=== PATIENT | female | born 1990 | race Caucasian/White ===

== ENCOUNTER 2018-10-18 10:50 | Emergency (ER) | payer BC ==
[2018-10-18 11:59] LABS: Absolute Lymphocytes (CBC) 2.4 K/uL (0.7-4.9); Absolute Monocytes 0.6 K/uL (0.1-1.3); Absolute Neutrophil 9.9 K/uL (1.8-8.0); Basophils % 1.3 % (0-1.3); Eosinophils % 1.8 % (0-4.4); Hematocrit 40.3 % (36.0-45.0); Lymphocytes % 17.9 % (15.3-44.8); MPV 7.9 fL (7.6-11.3); Monocytes % 4.7 % (3.3-12.3); RBC Red Blood Cell Count 4.56 M/uL (3.86-4.86)
[2018-10-18 12:39] LABS: Urine Blood 1+ (NEG); Urine Glucose NEGATIVE (NEG); Urine Protein NEGATIVE (NEG); Urine Specific Gravity <1.005 (1.005-1.030); Urine pH 5.5 (5.0-7.0)
[2018-10-18] MEDS ORDERED: NA CHLORIDE 0.9% 1,000 ML ONE (12:41)
[2018-10-18 12:45] LABS: Urine Bacteria <20 /HPF (<20); Urine Culture Reflex Order NOT NEEDED; Urine RBC <5 /HPF (NONE SEEN)
[2018-10-18 12:48] LABS: Potassium 3.9 mmol/L (3.5-5.1); Thyroid Stimulating Hormone 1.46 uIU/mL (0.360-3.740)
--- NOTE | 2018-10-18 13:45 | ER ---
Nurse's Notes [facility] Name: Estela Smith Age: 28 yrs Sex: Female : 1990 Arrival Date: 10/18/2018 Time: 10:51 Bed 14 Private MD: Unknown, Unknown Diagnosis: Other malaise and fatigue Presentation: 10/18 10:55 Presenting complaint: Patient states: rolando been throwing up and rolando been having acid hj reflux for a about 3 weeks; denies diarrhea and constipation; denies fever and chills; able to tolerate fluids and solid foods;. Transition of care: patient was not received from another setting of care. Onset of symptoms was October 18, 2018. Risk Assessment: Do you want to hurt yourself or someone else? Patient reports no desire to harm self or others. Initial Sepsis Screen: Does the patient meet any 2 criteria? No. Patient's initial sepsis screen is negative. Does the patient have a suspected source of infection? No. Patient's initial sepsis screen is negative. Care prior to arrival: None. 10:55 Method Of Arrival: Ambulatory 10:55 Acuity: WILLIAM 3 hj Triage Assessment: 10:57 Headache History: Denies prior headaches. General: Appears in no apparent distress. hj uncomfortable, Behavior is calm, cooperative, appropriate for age. Pain: Complains of pain in abdomen Pain currently is 7 out of 10 on a pain scale. Pain began 3 weeks anow; Also complains of nausea. Neuro: Level of Consciousness is awake, alert, obeys commands, Oriented to person, place, time, situation, Appropriate for age. 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 - Social history:: Smoking status: Patient uses tobacco products, Patient/guardian denies using alcohol. - Ebola Screening: : Patient negative for fever greater than or equal to 101.5 degrees Fahrenheit, and additional compatible Ebola Virus Disease symptoms Patient denies exposure to infectious person Patient denies travel to an Ebola-affected area in the 21 days before illness onset. Screenin:57 Abuse screen: Denies threats or abuse. Denies injuries from another. Nutritional hj screening: No deficits noted. Tuberculosis screening: No symptoms or risk factors identified. Fall Risk None identified. Assessment: 11:18 General: SEE TRIAGE NOTE. bp 12:35 Reassessment: IVF INFUSING, RESULTS PENDING. NO APPARENT DISTRESS. bp 14:15 Reassessment: PT D/C HOME AMBULATORY, DX WITH MALAISE. bp Vital Signs: 10:58 BP 134 / 88; Pulse 108; Resp 18; Temp 98.8(O); Pulse Ox 98% on R/A; Weight 54.43 kg; hj Height 5 ft. 1 in. (154.94 cm); Pain 7/10; 12:34 BP 109 / 59; Pulse 92; Resp 14; Pulse Ox 97% ; bp 10:58 Body Mass Index 22.67 (54.43 kg, 154.94 cm) hj ED Course: 10:51 Patient arrived in ED. ag5 10:51 Unknown, Unknown is Private Physician. ag5 10:56 Triage completed. hj 10:58 Arm band placed on left wrist. hj 10:59 Patient has correct armband on for positive identification. Placed in gown. Bed in low hj position. Call light in reach. Side rails up X 1. 11:11 [facility] jr8 11:11 Emanuel Balbuena MD is Attending Physician. jr8 11:18 Adithya Robert, SANTI is Primary Nurse. bp 11:50 Inserted saline lock: 20 gauge in right antecubital area, using aseptic technique. bp Blood collected. 14:13 No provider procedures requiring assistance completed. IV discontinued, intact, bp bleeding controlled, No redness/swelling at site. Pressure dressing applied. Administered Medications: 12:00 Drug: NS 0.9% 1000 ml Route: IV; Rate: 1000 ml; Site: right antecubital; bp 14:15 Follow up: IV Status: Completed infusion; IV Intake: 1000ml bp Intake: 14:15 IV: 1000ml; Total: 1000ml. bp Outcome: 13:44 Discharge ordered by . jr8 14:14 Discharged to home ambulatory. bp 14:14 Condition: stable 14:14 Discharge instructions given to patient, Instructed on discharge instructions, follow up and referral plans. Demonstrated understanding of instructions, follow-up care. 14:16 Patient left the ED. bp Signatures: Alex Curtis PA PA jr8 Vargas Pimentel RN RN Adithya Ennis RN RN Leann Damon ag5
--- NOTE | 2018-10-18 13:45 | EDPHYS ---
Physician Documentation [facility] Name: Estela Smith Age: 28 yrs Sex: Female : 1990 Arrival Date: 10/18/2018 Time: 10:51 Bed 14 Private MD: Unknown, Unknown ED Physician Emanuel Balbuena HPI: 10/18 12:16 This 28 yrs old Female presents to ER via Ambulatory with complaints of jr8 Nausea, fatigue. 12:16 Patient stated that for the past three weeks has felt overly tired and fatigued. jr8 Sleeping a lot more then usual. Has had nausea on/off. Feels like a "train" has run over her . Severity of symptoms: At their worst the symptoms were mild in the emergency department the symptoms are unchanged. The patient has not experienced similar symptoms in the past. The patient has not recently seen a physician. 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 - Social history:: Smoking status: Patient uses tobacco products, Patient/guardian denies using alcohol. - Ebola Screening: : Patient negative for fever greater than or equal to 101.5 degrees Fahrenheit, and additional compatible Ebola Virus Disease symptoms Patient denies exposure to infectious person Patient denies travel to an Ebola-affected area in the 21 days before illness onset. ROS: 12:16 Eyes: Negative for injury, pain, redness, and discharge, ENT: Negative for injury, jr8 pain, and discharge, Neck: Negative for injury, pain, and swelling, Cardiovascular: Negative for chest pain, palpitations, and edema, Respiratory: Negative for shortness of breath, cough, wheezing, and pleuritic chest pain, Back: Negative for injury and pain, MS/Extremity: Negative for injury and deformity, Skin: Negative for injury, rash, and discoloration, Neuro: Negative for headache, weakness, numbness, tingling, and seizure. 12:16 Constitutional: Positive for fatigue, malaise, Negative for body aches, chills, fever, poor PO intake. 12:16 Abdomen/GI: Positive for nausea, Negative for abdominal pain, vomiting, diarrhea, constipation, abdominal cramps, abdominal distension, anorexia, dysphagia, hematemesis, black/tarry stool, rectal pain, rectal bleeding, bowel incontinence, flatulence. Exam: 12:16 Eyes: Pupils equal round and reactive to light, extra-ocular motions intact. Lids and jr8 lashes normal. Conjunctiva and sclera are non-icteric and not injected. Cornea within normal limits. Periorbital areas with no swelling, redness, or edema. ENT: Nares patent. No nasal discharge, no septal abnormalities noted. Tympanic membranes are normal and external auditory canals are clear. Oropharynx with no redness, swelling, or masses, exudates, or evidence of obstruction, uvula midline. Mucous membranes moist. Neck: Trachea midline, no thyromegaly or masses palpated, and no cervical lymphadenopathy. Supple, full range of motion without nuchal rigidity, or vertebral point tenderness. No Meningismus. Cardiovascular: Regular rate and rhythm with a normal S1 and S2. No gallops, murmurs, or rubs. Normal PMI, no JVD. No pulse deficits. Respiratory: Lungs have equal breath sounds bilaterally, clear to auscultation and percussion. No rales, rhonchi or wheezes noted. No increased work of breathing, no retractions or nasal flaring. Abdomen/GI: Soft, non-tender, with normal bowel sounds. No distension or tympany. No guarding or rebound. No evidence of tenderness throughout. Back: No spinal tenderness. No costovertebral tenderness. Full range of motion. Skin: Warm, dry with normal turgor. Normal color with no rashes, no lesions, and no evidence of cellulitis. MS/ Extremity: Pulses equal, no cyanosis. Neurovascular intact. Full, normal range of motion. Neuro: Awake and alert, GCS 15, oriented to person, place, time, and situation. Cranial nerves II-XII grossly intact. Motor strength 5/5 in all extremities. Sensory grossly intact. Cerebellar exam normal. Normal gait. Vital Signs: 10:58 BP 134 / 88; Pulse 108; Resp 18; Temp 98.8(O); Pulse Ox 98% on R/A; Weight 54.43 kg; hj Height 5 ft. 1 in. (154.94 cm); Pain 7/10; 12:34 BP 109 / 59; Pulse 92; Resp 14; Pulse Ox 97% ; bp 10:58 Body Mass Index 22.67 (54.43 kg, 154.94 cm) hj MDM: 11:34 Patient medically screened. jr8 13:43 Data reviewed: vital signs, nurses notes, lab test result(s), and as a result, I will jr8 discharge patient. Data interpreted: Pulse oximetry: on room air is 97 %. Interpretation: normal. Counseling: I had a detailed discussion with the patient and/or guardian regarding: the historical points, exam findings, and any diagnostic results supporting the discharge/admit diagnosis, lab results, the need for outpatient follow up, a family practitioner, to return to the emergency department if symptoms worsen or persist or if there are any questions or concerns that arise at home. 10/18 11:39 Order name: CBC with Diff; Complete Time: 12:07 10/18 11:39 Order name: Basic Metabolic Panel; Complete Time: 12:56 rust 10/18 11:39 Order name: TSH; Complete Time: 12:56 10/18 11:39 Order name: T4 Free; Complete Time: 12:56 10/18 12:00 Order name: Urine Culture bp 10/18 12:00 Order name: Urine Microscopic Only; Complete Time: 12:47 bp 10/18 11:39 Order name: Urine Test (obtain specimen); Complete Time: 12:00 8 10/18 11:39 Order name: Urine Dipstick-Ancillary (obtain specimen); Complete Time: 12:00 rust 10/18 11:39 Order name: IV; Complete Time: 12:00 10/18 12:05 Order name: Urine Dipstick--Ancillary (enter results); Complete Time: 12:47 eb 10/18 12:05 Order name: Test, Serum; Complete Time: 13:43 eb Administered Medications: 12:00 Drug: NS 0.9% 1000 ml Route: IV; Rate: 1000 ml; Site: right antecubital; bp 14:15 Follow up: IV Status: Completed infusion; IV Intake: 1000ml bp Disposition: 14:28 Co-signature as Attending Physician, Emanuel Balbuena MD I agree with the assessment and kdr plan of care. Disposition: 10/18/18 13:44 Discharged to Home. Impression: Other malaise and fatigue. - Condition is Stable. - Discharge Instructions: Fatigue. - Medication Reconciliation Form, Thank You Letter, Antibiotic Education, Prescription Opioid Use, Work release form form. - Follow up: Private Physician; When: 2 - 3 days; Reason: Recheck today's complaints, Continuance of care, Re-evaluation by your physician. - Problem is new. - Symptoms have improved. Signatures: Dispatcher [employer] EDMS Emanuel Balbuena MD MD [facility] Alex Curtis PA PA jr8 Vargas Pimentel RN RN hj Adithya Robert RN RN bp Corrections: (The following items were deleted from the chart) 14:16 13:44 10/18/2018 13:44 Discharged to Home. Impression: Other malaise and fatigue. bp Condition is Stable. Forms are Medication Reconciliation Form, Thank You Letter, Antibiotic Education, Prescription Opioid Use. Follow up: Private Physician; When: 2 - 3 days; Reason: Recheck today's complaints, Continuance of care, Re-evaluation by your physician. Problem is new. Symptoms have improved. jr8
== END 2018-10-18 14:16 | disposition home or self-care (01) ==
LOC: ER 10:50
DX: R53.83 Other fatigue (principal); R53.81 Other malaise; R11.0 Nausea; J45.909 Unspecified asthma, uncomplicated; Z72.0 Tobacco use
CPT/HCPCS: 36415; 80048; 81003; 81015; 84439; 84443; 84703; 85025; 87086; 87088; 96360; 96361; 99283; J7030

== ENCOUNTER 2021-02-26 14:41 | Emergency (ER) | payer BC ==
--- OUTSIDE RECORDS SUMMARY | 2021-02-26 14:45 | XMS REPORT | Continuity of Care Document ---
:1990 Author Organization [facility] t Address [address] [place] [address] [address] [place] [address] Care Team Providers Name Role Phone Unavailable Unavailable Unavailable Payers Payer Name Policy Type Policy Number Effective Date Expiration Date S ource Problems This patient has no known problems. Allergies, Adverse Reactions, Alerts Allergy Allergy Status Severity Reaction(s) Onset Inactive Treating Comm ents Source Name Type Date Date Clinician No Known DA Active U [facility]: [facility] 00 [facility] Medications This patient has no known medications. Procedures This patient has no known procedures. Results Test Description Test Time Test Comments Results Result Comments Source [facility] 2020-02-05 TRIMESTER 10:48:00 RUN DATE: 02/05/20 [facility] PAGE 1 RUN TIME: 1709 Specimen Inquiry RUN USER: INTERFACE PAT IENT: GARCIA GIBBONS [facility] #: [id number] LOC: S[place] U #: [id number] AGE/SX: 29 ROOM: [facility] RE01/30/20REG DR: May Baxter MD : [birth year] BED: A DIS: 02/01/20 STATUS: DIS IN TLOC: SPEC #: [id number] RECD: 01/31/20 STATUS: MAYI RE #: [id number] YI: 01/31/20- SUBM DR: May Baxter MD ENTERED: 02/02/20 SP TYPE: PLACIII OTHR DR: ORDERED: LEVEL V SURGICA CODES: [id number] - PLACENTA, NOS PROCEDURES: LEVEL V SURGICA (Incomplete) TISSUES: PLACENTA, NOS - PLACENTA CLINICAL HISTORY 29 year old, IUP @ 37.1 weeks, [id number], vaginal delivery, nuchal cord x 1, COVID+ (wpd) FINAL DIAGNOSIS Placenta, 37.1 weeks gestational age, vaginal delivery: - third trimester placenta, 485 gms (60th percentile) - chronic chorioamnionitis, mild - multifocal low-grade chronic basal villitis of unknown etiology (see comment) - delayed villous maturation - trivascular umbilical cord and membranes free of inflammation COMMENT: Villitis of undetermined etiology (NILDA) is reported in 5-15% of all third trimester placentas and has been associated with intrauterine growth restriction (IUGR), neurologic abnormalities, and intrauterine demise. The etiology of NILDA is postulated to be a maternal response to antigens in the villous stroma. In most cases NILDA is associated with a normal outcome; however, adverse outcome and severity of the findings in the correlates with the severity of NILDA. The risk for recurrence is generally quoted as 10-15%, but has been reported as high as 37% in one study. Clinical correlation is recommended. CPT code(s): 74557 [facility] GROSS DESCRIPTION The specimen was received in a container, labeled with the patient's name, unit number and designated "placenta". The following attributes are observed: Cord insertion: 8 cm from margin Cord length: 30 cm Number of vessels: 3 CONTINUED ON NEXT PAGE RUN DATE: 02/05/20 [facility] PAGE 2 RUN TIME: 1709 Specimen Inquiry RUN USER: INTERFACE JANET C #: [id number] PATIENT: GARCIA GIBBONS #[id number] (Continued)-------- -------- GROSS DESCRIPTION (Continued) Cord color: Cervantes-white Other cord findings: None surface findings: Blue-santos, wrinkled, glistening with focal subchorionic fibrin deposition Vasculature: Displays unremarkable blood vasculature Membranes rupture site: 8 cm to margin Membrane color: Cervantes-pink Other membrane findings: Semi-translucent The trimmed placental weight: 485 gm Disk measurement: 19 x 17 x 3 cm in greatest dimension Accessory lobes: None Maternal surface: Lobulated and disrupted, but complete Parenchyma: Red-brown and spongy Parenchyma lesions: None Cassettes: A1 through A6 karissa 02/02/20 ---- Signed Danielle Arrieta MD 02/05/20 1048 END OF REPORT AG HEPATITIS B SURFACE 2020-01-30 20:21:00 Test Item Value Reference Range Interpretation Comme nts AG HEPATITIS B SURFACE (test code = HBSAG) NONREACTIVE NONREACTIVE IS CONSENT FORM SIGNED FOR HIV TESTING? YAB HEPATITIS C [id number] 20:21:00 Test Item Value Reference Range Interpretation Comments AB HEPATITIS C (test code = NONREACTIVE NONREACTIVE HCVAB) SIGNAL TO CUTOFF (test code = 0.02 <0.80 N CUTOFF) IS CONSENT FORM SIGNED FOR HIV TESTING? YAB [id number] 20:21:00 Test Item Value Reference Range Interpretation Comments AB TREPONEMA (test code = TREPAB) NONREACTIVE NONREACTIVE IS CONSENT FORM SIGNED FOR HIV TESTING? YAB HIV 1 20:21:00 Test Item Value Reference Range Interpretation Comments AB HIV 1 2 (test NONREACTIVE NONREACTIVE Done by [facility] code = [id number]) 4th Gen HIV Ag/Ab Combo Screen IS CONSENT FORM SIGNED FOR HIV TESTING? YAG HEPATITIS B [id number] 19:39:00 Test Item Value Reference Range Interpretation Comments AG HEPATITIS B SURFACE (test code NONREACTIVE NONREACTIVE = HBSAG) IS CONSENT FORM SIGNED FOR HIV TESTING? YAB HEPATITIS C [id number] 19:39:00 Test Item Value Reference Range Interpretation Comments AB HEPATITIS C (test code = HCVAB) NONREACTIVE SIGNAL TO CUTOFF (test code = CUTOFF) <0.80 IS CONSENT FORM SIGNED FOR HIV TESTING? YAB [id number] 19:39:00 Test Item Value Reference Range Interpretation Comments AB TREPONEMA (test code = TREPAB) NONREACTIVE NONREACTIVE IS CONSENT FORM SIGNED FOR HIV TESTING? YAB HIV 1 19:39:00 Test Item Value Reference Range Interpretation Comments AB HIV 1 2 (test code = [id number]) NONREACTIVE IS CONSENT FORM SIGNED FOR HIV TESTING? YCBC W/AUTO [id number] 18:54:00 Test Item Value Reference Range Interpretation Comments WHITE BLOOD CELL (test code = WBC) 10.0 K/mm3 6.6-12.1 N RED BLOOD CELL (test code = RBC) 3.83 M/mm3 3.45-5.01 N HEMOGLOBIN (test code = HGB) 11.3 g/dL 10.7-13.9 N HEMATOCRIT (test code = HCT) 36.0 % 32.1-42.1 N MEAN CELL VOLUME (test code = MCV) 94 fL 84.1-94.8 N MEAN CELL HGB (test code = MCH) 29.5 pg 27-35 N MEAN CELL HGB CONCETRATION (test 31.4 gm/dL 32.2-34.1 L code = MCHC) RED CELL DISTRIBUTION WIDTH (test 14.0 % 12.4-16.5 N code = RDW) PLATELET COUNT (test code = PLT) 230 K/mm3 133-385 N MEAN PLATELET VOLUME (test code = 11.0 fl 9.1-12.7 N MPV) NEUTROPHIL % (test code = NT%) 78.1 % 56.5-79.4 N LYMPHOCYTE % (test code = LY%) 14.8 % 14.3-34.3 N MONOCYTE % (test code = MO%) 6.0 % 5.1-10.4 N EOSINOPHIL % (test code = EO%) 0.3 % 0.1-3.0 N BASOPHIL % (test code = BA%) 0.3 % 0.1-1.0 N NEUTROPHIL # (test code = NT#) 7.8 K/mm3 LYMPHOCYTE # (test code = LY#) 1.5 K/mm3 MONOCYTE # (test code = MO#) 0.6 K/mm3 EOSINOPHIL # (test code = EO#) 0.03 K/mm3 BASOPHIL # (test code = BA#) 0.0 K/mm3 RBC MORPHOLOGY REQUIRED (test code NORMAL NORMAL = RBCM) PLATELET MORPHOLOGY REQUIRED (test NORMAL NORMAL code = PLTMR) COVID 19 Asymptomatic IH [id number] 18:09:00 Test Item Value Reference Range Interpretation Comments COVID 19 POSITIVE NEGATIVE A RESULTS CALLED TO Asymptomatic IH AG CHEN AD BACK & (test code = CONFIRMED? [facility] COVNONPUIAG) 01/30/20 is test has been author ized only for the detecti on ofproteins from SARS-CoV-2, not for any other viruses orpathogens. N egative results should be treated as presumptive andconfirmed wi th a molecular assay , if necessary for patientmanageme nt. Negative result s do not rule out COVID- 19 andshould not b e used as the sole basis for treatment orpat ient management deci sions, including infec tion controldecision s. Negative result s should be considered i n thecontext of a patient's recent exposure s, history and thepresence of clinical signs and symptoms consis tent withCOVID-19. T his test has not been FD A cleared or approved; th e test hasbeen authori zed by FDA under an Emerge ncy Use Authorization(E UA) for use by laborato eliana certified under the CLIA thatmeet the re quirements to perform mode rate, high or waivedcomple xity tests. This lance t is authorized for use at thePoint of Car e (POC), i.e., in patien t care settingsoperati ng under a CLIA Certificat e of Waiver, Certifi gina ofCompliance, o r Certificate of Accreditation. This test is only authori ramon for the duration of thedeclaration that circumstances e xist justifying theauthorizatio n of emergency use o f in vitro diagnostic test sfor detection and/o r diagnosis of CO VID-19 under Lpydysm29 4(b)(1) of the Act, 21 U.S .C. 360bbb-3(b)(1), unless theauthorizatio n is terminated or r evoked sooner. - US PREG AFTER [id number] 10:26:00 Patient Name: GARCIA GIBBONS Unit No: [id number] EXAMS: CPT CODE: [id number] US PREG AFTER [address] [facility] [address], [place] [address] OBSTETRICAL ULTRASOUND REPORT Pat. Name: GARCIA GIBBONS Pat. No: [id number] Study Date: 09/22/2019 9:35am , Age: 01 1990, 29 Pregnancies: 2, Para 1 LMP: Unknown GA by US: 18w2d GA Selected: 18w3d (From Known E) NEGRA: 02/20/2020 Referring MD: May Baxter M.D. Vamp Throater: Meagan Lake RDMS CPT4: TPHXOSQ2D Hist/Ind: SCAN 1 ANATOMY MEASUREMENTS AGE GROWTH EVALUATION Measurement GA Range Srce %for GA Ratios ----- ---- ------- BPD4.1 cm 18w2d (23k2h-52u4n) Hadl BPD 44% FL/BPD 0.71 HC 14.8 cm 17w6d (18v4d-54c6e) Hadl HC 32% FL/AC 0.23 APD 4.1 cm APD HC/AC 1.15 (1.07 - 1.26) TAD 4.1 cm TAD CI 0.84 (0.70 - 0.86) AC 12.9 cm 18w1d (97e3x-76h7p) Hadl AC 43% FL 2.9 cm 18w4d (21b7m-01f3k) Hadl FL 53% HL 2.6 cm 18w2d (15w4d- 21w0d) Karan HL 47% GA for sonogram 18w2d (25g6x-19d9t) Weight Estimate: based on (BPD,HC,AC,FL) Hadlock Weight: 247 gm (211-283) Hadlock : 0lbs, 8oz Cervical Length: 4.4 cm Heart Rate: 143 bpm MATERNAL ANATOMY Ovaries LxHxW (cm) Right 2.5 x 2.1 x 2.1 Vol: 5.8cc Left 2.2 x 1.3 x 1.6 Vol: 2.4cc CLINICAL SUMMARY Type of Gestation: Sahu Intrauterine in va riable presentation. size is appropriate for gestational age. growth: Consistent with normal growth motion and organs seen: heart motion seen body and limb movements seen Four chamber heart observed Left ventricular outflow tract (LVOT) seen Right ventricular outflow tract (RVOT) seen [facility] NAME: GARCIA GIBBONS Radiology Department PHYS: Gill Martinez [address] : 1990 AGE: 29 SEX: F [place], [place] [address] LOC: Nivia.RAD PHONE #: [phone] EXAM DATE: 09/22/2019 STATUS: REG CLI FAX #: [phone] RAD NO: Page 1 Signed Report (CONTINUED) Patient Name: GARCIA GIBBONS Unit No: [id number] EXAMS: CPT CODE: [id number] US PREG AFTER 1ST TRI 27490 <Continued> Normal intracranial anatomy seen Umbilical cord insertion in fetus seenFetal stomach, Renal Fossa, Bladder and Spine seen Three vessel umbilical cord noted Stomach seen. abnormalities observed: None seen at this exam Placental location: Posterior Placental maturity : Grade 1 There is no evidence of placenta previa. Amniotic fluid volume is normal. Uterus and adnexa: No significant abnormality is seen. Thank you for allowing us to participate in the care of this patient. Armand Kidd M.D. Electronic Signature 09/22/2019 10:26am at 1026 Reported and signed by: Armand Kidd MD CC: Technologist: Meagan Lake RDMS Probe: Trnscrbd D/ (1026) t.SDR.YOS Orig Print D/T: S: 09/22/2019 (1026) [facility] [place], [place] NAME: EDWIGEGARCIA Radiology Department PHYS: Gill Martinez [address] : 1990 AGE: 29 SEX: F [place] [address] LOC: F.RAD PHONE #: [phone] EXAM DATE: 09/22/2019 STATUS: REG CLI FAX #: [phone] RAD NO: Page 2 Signed Report Patient Name: GARCIA GIBBONS Unit No: [id number] EXAMS: CPT CODE: [id number] US PREG AFTER 1ST TRI 41147 <Continued> [facility] [place], [place] NAME: EDWIGEGARCIA Radiology Department PHYS: Gill Martinez [address] : 1990 AGE: 29 SEX: F [place] [address] LOC: F.RAD PHONE #: [phone] EXAM DATE: 09/22/2019 STATUS: REG CLI FAX #: [phone] RAD NO: Page 3 Signed Report
--- NOTE | 2021-02-26 18:32 | RAD REPORT ---
EXAM DESCRIPTION: RAD - Wrist Right 3 View - 02/26/2021 6:17 pm CLINICAL HISTORY: PAIN, no known trauma COMPARISON: No comparisons FINDINGS: No fracture is identified. There is no dislocation or periosteal reaction noted. No acute or destructive bone process. No foreign body or other soft tissue abnormality. IMPRESSION: Negative right wrist examination.
--- NOTE | 2021-02-26 20:14 | ER ---
Nurse's Notes [facility] Name: Estela Smith Age: 30 yrs Sex: Female : 1990 Arrival Date: 02/26/2021 Time: 14:58 Bed DX1 Private MD: Diagnosis: Pain in right wrist Presentation: 02/26 15:37 Chief complaint: Patient states: R wrist pain that began 3 days ago. Coronavirus ss screen: Client denies travel out of the [place] in the last 14 days. Ebola Screen: Patient denies exposure to infectious person. Patient denies travel to an Ebola-affected area in the 21 days before illness onset. Initial Sepsis Screen: Does the patient meet any 2 criteria? No. Patient's initial sepsis screen is negative. Does the patient have a suspected source of infection? No. Patient's initial sepsis screen is negative. Risk Assessment: Do you want to hurt yourself or someone else? Patient reports no desire to harm self or others. Onset of symptoms was February 23, 2021. 15:37 Method Of Arrival: Ambulatory ss 15:37 Acuity: WILLIAM 4 ss Historical: - Allergies: 15:38 No Known Allergies; ss - PMHx: 15:38 Asthma; ss - Immunization history:: Client reports having NOT received the Covid vaccine. - Social history:: Smoking status: Patient reports the use of cigarette tobacco products, smokes one-half pack cigarettes per day. Screenin:12 Abuse screen: Denies threats or abuse. Nutritional screening: No deficits noted. em Tuberculosis screening: No symptoms or risk factors identified. Fall Risk None identified. Assessment: 20:07 General: Appears in no apparent distress. comfortable, Behavior is calm, cooperative, em appropriate for age. Pain: Complains of pain in dorsal aspect of right wrist Pain currently is 6 out of 10 on a pain scale. Neuro: Level of Consciousness is awake, alert, obeys commands, Oriented to person, place, time, situation. Cardiovascular: Capillary refill < 3 seconds Patient's skin is warm and dry. Respiratory: Airway is patent Respiratory effort is even, unlabored, Respiratory pattern is regular, symmetrical. Derm: Skin is intact, is healthy with good turgor, Skin is pink, warm \T\ dry. Musculoskeletal: Capillary refill < 3 seconds, Range of motion: limited in right wrist. 20:10 General: Appears in no apparent distress. comfortable, Behavior is calm, cooperative. em Pain: Complains of pain in right wrist. Neuro: Level of Consciousness is awake, alert, obeys commands, Oriented to person, place, time, situation. Cardiovascular: Capillary refill < 3 seconds Patient's skin is warm and dry. Respiratory: Airway is patent Respiratory effort is even, unlabored, Respiratory pattern is regular, symmetrical. Derm: Skin is intact, is healthy with good turgor, Skin is pink, warm \T\ dry. Musculoskeletal: Capillary refill < 3 seconds, Range of motion: intact in all extremities. Vital Signs: 15:37 BP 140 / 83; Pulse 88; Resp 15; Temp 97.6(TE); Pulse Ox 99% on R/A; ss 15:38 Weight 72.57 kg; Height 5 ft. 1 in. (154.94 cm); Pain 6/10; ss 15:38 Body Mass Index 30.23 (72.57 kg, 154.94 cm) ED Course: 14:58 Patient arrived in ED. ds1 15:38 Triage completed. ss 15:38 Arm band placed on left wrist. ss 18:17 XRAY Wrist RIGHT 3 view In Process Unspecified. EDMS 20:08 Antonio Forbes PA is PHCP. cp 20:08 Ag Carmen MD is Attending Physician. cp 20:12 Trell Orourke, RN is Primary Nurse. em 20:12 Madi Hirsch MD is Referral Physician. cp 20:12 Patient has correct armband on for positive identification. Adult w/ patient. em 20:12 No provider procedures requiring assistance completed. Patient did not have IV access em during this emergency room visit. Administered Medications: No medications were administered Outcome: 20:13 Discharge ordered by MD. cp 20:22 Discharged to home ambulatory. em 20:22 Condition: good 20:22 Discharge instructions given to patient, Instructed on discharge instructions, follow up and referral plans. medication usage, Demonstrated understanding of instructions, follow-up care, medications, Prescriptions given X 1. 20:23 Patient left the ED. em Signatures: Dispatcher [employer] EDDC Trell Orourke RN RN Stephanie Zamarripa ds1 Karissa Hammer RN RN Page, Antonio, PA PA cp
--- NOTE | 2021-02-26 20:14 | EDPHYS ---
Physician Documentation [facility] Name: Estela Smith Age: 30 yrs Sex: Female : 1990 Arrival Date: 02/26/2021 Time: 14:58 Bed DX1 Private MD: ED Physician Ag Carmen HPI: 02/26 20:00 This 30 yrs old Female presents to ER via Ambulatory with complaints of Wrist cp Pain. 20:00 The patient or guardian reports pain, swelling, tenderness. The complaints affect the cp right wrist diffusely. Context: resulted from an unknown cause. 20:00 Onset: The symptoms/episode began/occurred 3 day(s) ago. cp 20:00 Modifying factors: the symptoms are aggravated by movement. Associated signs and cp symptoms: Pertinent negatives: cyanosis distally, numbness distally. Historical: - Allergies: 15:38 No Known Allergies; ss - PMHx: 15:38 Asthma; ss - Immunization history:: Client reports having NOT received the Covid vaccine. - Social history:: Smoking status: Patient reports the use of cigarette tobacco products, smokes one-half pack cigarettes per day. ROS: 20:05 MS/extremity: Positive for pain, swelling, tenderness, of the right wrist, Negative for cp injury or acute deformity, decreased range of motion. 20:05 Constitutional: Negative for body aches, chills, fever. cp 20:05 Skin: Negative for cellulitis, rash. 20:05 Neuro: Negative for numbness, tingling, weakness. 20:05 All other systems are negative. Exam: 20:08 Constitutional: The patient appears in no acute distress, alert, awake, non-toxic, well cp developed, well nourished. 20:08 Head/Face: Normocephalic, atraumatic. cp 20:08 Chest/axilla: Inspection: normal. 20:08 Cardiovascular: Rate: normal, Pulses: Pulses are 2+ in right radial artery. Edema: is not appreciated. 20:08 Respiratory: the patient does not display signs of respiratory distress, Respirations: normal, no use of accessory muscles, no retractions. 20:08 Musculoskeletal/extremity: Joints: the right wrist displays painful range of motion, tenderness, mild swelling noted, skin warm/dry to touch without erythema. Vital Signs: 15:37 BP 140 / 83; Pulse 88; Resp 15; Temp 97.6(TE); Pulse Ox 99% on R/A; ss 15:38 Weight 72.57 kg; Height 5 ft. 1 in. (154.94 cm); Pain 6/10; ss 15:38 Body Mass Index 30.23 (72.57 kg, 154.94 cm) ss Procedures: 20:20 Splinting: Splint applied to right wrist using wrist splint, applied by nurse. Examined cp by me, post splint application: neurovascular intact, Patient tolerated well. MDM: 20:12 Patient medically screened. cp 20:12 Differential diagnosis: closed fracture, tendonitis, sprain. cp 20:13 Data reviewed: vital signs, nurses notes, radiologic studies, plain films. cp 20:13 Test interpretation: by ED physician or midlevel provider: plain radiologic studies. cp Counseling: I had a detailed discussion with the patient and/or guardian regarding: the historical points, exam findings, and any diagnostic results supporting the discharge/admit diagnosis, radiology results, to return to the emergency department if symptoms worsen or persist or if there are any questions or concerns that arise at home. 02/26 17:49 Order name: XRAY Wrist RIGHT 3 view; Complete Time: 20:08 ss 02/26 20:09 Order name: Splint - Wrist; Complete Time: 20:12 cp Administered Medications: No medications were administered Disposition: 20:20 Chart complete. cp 02/27 06:47 Co-signature as Attending Physician, Ag Carmen MD. [email or web address] Disposition Summary: 02/26/21 20:13 Discharge Ordered Location: Home cp Problem: new cp Symptoms: have improved cp Condition: Stable cp Diagnosis - Pain in right wrist cp Followup: cp - With: Madi Hirsch MD - When: 1 week - Reason: pain continues Discharge Instructions: - Discharge Summary Sheet cp - Wrist Pain, Adult cp - Form - Excuse from Work, School, or Physical Activity cp Forms: - Medication Reconciliation Form cp - Work release form em - Thank You Letter cp - Antibiotic Education cp - Prescription Opioid Use cp Prescriptions: - Diclofenac Sodium 75 mg Oral Tablet Sustained Release - take 1 tablet by ORAL route 2 times per day; 30 tablet; Refills: 0, Product cp Selection Permitted Signatures: Dispatcher [facility] Karissa Sue RN RN ss Antonio Forbes PA PA cp Holmes, Maurice, MD MD [email or web address]
[2021-02-26 20:31] VITALS: BP 140/83; TEMP 97.6; O2SAT 99
== END 2021-02-26 20:23 | disposition home or self-care (01) ==
LOC: ER 14:41
DX: M25.531 Pain in right wrist (principal); F17.210 Nicotine dependence, cigarettes, uncomplicated
CPT/HCPCS: 99283

== ENCOUNTER 2023-11-11 13:27 | Emergency (ER) | payer BC ==
--- OUTSIDE RECORDS SUMMARY | 2023-11-11 13:30 | XMS REPORT | Continuity of Care Document ---
Author Name Unknown Address [address] [facility] [address] [place] [address] [facility] thconnect Address [address] [facility] [address] [place] [address] Care Team Providers Care Specialist Managers Name Role Phone May Baxter Attending Clinician Unavailable Gill Domingo Attending Clinician Unavailable May Baxter Admitting Clinician Unavailable Payers Payer Name Policy Type Policy Number Effective Date Expirati on Date Source Allergies, Adverse Reactions, Alerts Allergy Name Allergy Type Status Severity Reaction(s) Onset Date Inactive Date Treating Clinician Comments Source No Known Drug Intolera nces DA Active U 09-23 00:00: 00 [facility] No Known Drug Intolera nces DA Active U none 09-23 00:00: 00 [facility] Procedures Procedure Date / Time Performed Performing Clinicia n Source [id number] 2020-01-31 00:00:00 AISLINN.09 [facility] Encounters Start Date/Time End Date/Time Encounter Type Admission Type Attending Clinicians Care Facility Care Department Encounter ID Source 2020-01-30 16:45:00 2020-02-03 04:00:45 Inpatient May Baxter VICKY [id number] [facility] 2020-02-20 11:17:00 2020-01-30 16:23:19 Inpatient May Baxter LD [id number] [facility] 2019-09-22 09:00:00 2019-09-22 09:00:00 Outpatient Gill Domingo [facility] [id number] [facility] Results Test Description Test Time Test Comments Results Result Co mments Source PLACENTA THIRD TRIMESTER 2020-02-05 10:48:00 RUN DATE: 02/05/20 [facility] PAGE 1 RUN TIME: 1709 Specimen Inquiry RUN USER: INTERFACE BARRERA ARCEO: GARCIA GIBBONS LOC: SILVIANO U #: [id number] AGE/SX: 29/F ROOM: [facility] RE01/30/20[facility] DR: May Baxter MD : 91 BED: A DIS: 02/01/20 STATUS: DIS IN TLOC: SPEC #: [id number] RECD: 07 STATUS: SOUT REQ #: [id number] YI: 01/31/20- DR: May Baxter MD ENTERED: 02/02/20 SP TYPE: PLACIII OTHR DR: ORDERED: LEVEL V SURGICA CODES: [id number] - PLACENTA, NOS PROCEDURES: LEVEL V SURGICA (Incomplete) TISSUES: PLACENTA, NOS - PLACENTA CLINICAL HISTORY 29 year old, IUP @ 37.1 weeks, [id number], vaginal delivery, nuchal cord x 1, COVID+ [...] study. Clinical correlation is recommended. CPT code(s): 05169 [place] [employer] ssd/wpd GROSS DESCRIPTION The specimen was received in a container, labeled with the patient's name, unit number and designated "placenta". The following attributes are observed: Cord insertion: 8 cm from margin Cord length: 30 cm Number of vessels: 3 CONTINUED ON NEXT PAGE RUN DATE: 02/05/20 [facility] PAGE 2 RUN TIME: 1709 Specimen Inquiry RUN USER: INTERFACE SP BRIAN #: [id number] PATIENT: GARCIA GIBBOSN #[id number] (Continued)-------- -------- GROSS DESCRIPTION (Continued) Cord color: [...] Arrieta MD 02/05/20 1048 END OF REPORT IS CONSENT FORM SIGNED FOR HIV TESTING? [facility] HEPATITIS C [id number] 20:21:00* Test Item Value Reference Range Interpretation Comme nts AB HEPATITIS C (test code = HCVAB) NONREACTIVE NONREACTIVE SIGNAL TO CUTOFF (test code = CUTOFF) 0.02 <0.80 N IS CONSENT FORM SIGNED FOR HIV TESTING? AISLINN [id number] 20:21:00* Test Item Value Reference Range Interpretation Comme nts AB TREPONEMA (test code = TREPAB) NONREACTIVE NONREACTIVE IS CONSENT FORM SIGNED FOR HIV TESTING? AISLINN HIV 1 20:21:00* Test Item Value Reference Range Interpretation Comme nts AB HIV 1 2 (test code = DIW54EL) NONREACTIVE NONREACTIVE Done by [employer] HIV Ag/Ab Combo Screen IS CONSENT FORM SIGNED FOR HIV TESTING? YAG HEPATITIS B [id number] 19:39:00* Test Item Value Reference Range Interpretation Comme nts AG HEPATITIS B SURFACE (test code = HBSAG) NONREACTIVE NONREACTIVE IS CONSENT FORM SIGNED FOR HIV TESTING? AISLINN HEPATITIS C [id number] 19:39:00* Test Item Value Reference Range Interpretation Comme nts AB HEPATITIS C (test code = HCVAB) NONREACTIVE SIGNAL TO CUTOFF (test code = CUTOFF) <0.80 IS CONSENT FORM SIGNED FOR HIV TESTING? AISLINN [id number] 19:39:00* Test Item Value Reference Range Interpretation Comme nts AB TREPONEMA (test code = TREPAB) NONREACTIVE NONREACTIVE IS CONSENT FORM SIGNED FOR HIV TESTING? AISLINN HIV 1 19:39:00* Test Item Value Reference Range Interpretation Comme nts AB HIV 1 2 (test code = PAI80VD) NONREACTIVE IS CONSENT FORM SIGNED FOR HIV TESTING? YCBC W/AUTO [id number] 18:54:00* Test Item Value Reference Range Interpretation Comme nts WHITE BLOOD CELL (test code = WBC) [...] pg 27-35 N MEAN CELL HGB CONCETRATION ( test code = MCHC) 31.4 gm/dL 32.2-34.1 L RED CELL DISTRIBUTION WIDTH (test code = RDW) 14.0 % 12.4-16.5 N PLATELET COUNT (test code = PLT) 230 K/mm3 133-385 N MEAN PLATELET VOLUME (test c ode = MPV) 11.0 fl 9.1-12.7 N NEUTROPHIL % (test code = NT%) 78.1 [...] = BA#) 0.0 K/mm3 RBC MORPHOLOGY REQUIRED (lance t code = RBCM) NORMAL NORMAL PLATELET MORPHOLOGY REQUIRED (test code = PLTMR) NORMAL NORMAL COVID 19 Asymptomatic IH [id number] 18:09:00* Test Item Value Reference Range Interpretation Comme nts COVID 19 Asymptomatic IH AG (test code = COVNONPUIAG) POSITIVE NEGATIVE A RESULTS CALLED Gal JUNIOR BACK & CONFIRMED? MARILIN [facility] 01/30/20 1117This test has been authorized only for the detection ofproteins from SARS-CoV-2, not for any other viruses orpathogens. Negative results should be treated as presumptive andconfirmed with a molecular assay, if necessary for patientmanagement. Negative results do not rule out COVID-19 andshould not be used as the sole basis for treatment orpatient management decisions, including infection controldecisions. Negative results should be considered in thecontext of a patient's recent exposures, history and thepresence of clinical signs and symptoms consistent withCOVID-19. This test has not been FDA cleared or approved; the test hasbeen authorized by FDA under an Emergency Use Authorization(EUA) for use by laboratories certified under the CLIA thatmeet the requirements to perform moderate, high or waivedcomplexity tests. This test is authorized for use at thePoint of Care (POC), i.e., in patient care settingsoperating under a CLIA Certificate of Waiver, Certificate ofCompliance, or Certificate of Accreditation. This test is only authorized for the duration of thedeclaration that circumstances exist justifying theauthorization of emergency use of in vitro diagnostic testsfor detection and/or diagnosis of COVID-19 under Nxxxtsj877(b)(1) of the Act, 21 U.S.C. 360bbb-3(b)(1), unless theauthorization is terminated or revoked sooner. - US PREG AFTER [id number] 10:26:00Patient Name: GARCIA IGBBONS Unit No: [id number] EXAMS: CPT CODE: [id number] US PREG AFTER [address] [facility] [address] [address] OBSTETRICAL ULTRASOUND REPORT Pat. Name: GARCIA GIBBONS Pat. No: [id number] Study Date: 09/22/2019 9:35am , Age: 01 1990, 29 Pregnancies: 2, Para 1 LMP: Unknown GA by US: 18w2d GA Selected: 18w3d (From Known E) NEGRA: 02/20/2020 Referring MD: May Baxter M.D. Swing Type Lathe Operator: Meagan Lake RDMS CPT4: IICKRTY0O Hist/Ind: SCAN 1 ANATOMY MEASUREMENTS AGE GROWTH EVALUATION Measurement GA Range Srce %for GA Ratios ----- ---- ------- BPD 4.1 cm 18w2d (49u4e-97h5w) Hadl BPD 44% FL/BPD 0.71 HC 14.8 cm 17w6d (16w3d- 19w2d) Hadl HC 32% FL/AC 0.23 APD 4.1 cm APD HC/AC 1.15 (1.07 - 1.26) TAD 4.1 cm TAD CI 0.84 (0.70- 0.86) AC 12.9 cm 18w1d (72m0w-28i4p) Hadl AC 43% FL 2.9 cm 18w4d (11l7g-90d3o) Hadl FL 53% HL 2.6cm 18w2d (29p2k-65o9j) Karan HL 47% GA for sonogram 18w2d (14f3q-98x4e) Weight Estimate: basedon (BPD,HC,AC,FL) Hadlock Weight: 247 gm (211-283) Hadlock : 0lbs, 8oz Cervical Length: 4.4 cm Heart Rate: 143 bpm MATERNAL ANATOMY Ovaries LxHxW (cm) Right 2.5 x 2.1 x 2.1 Vol: 5.8cc Left 2.2 x 1.3 x 1.6 Vol: 2.4cc CLINICAL SUMMARY Type of Gestation: Sahu Intrauterine in variable presentation. size is appropriate for gestational age. growth: Consistent with normal growth motion and organs seen: heart motion seen body and limb movements seen Four chamberfetal heart observed Left ventricular outflow tract (LVOT) seen Right ventricular outflow tract (RVO T) seen [facility] NAME: EDWIGEGARCIA Radiology Department PHYS: Gill Martinez [address] : 1990 AGE: 29 SEX: [place] [address] LOC: AbbiRAD PHONE #: [phone] EXAM DATE: 09/22/2019 STATUS: REG CLI FAX #: [phone] RAD NO: Page 1 Signed Report (CONTINUED) Patient Name: GARCIA GIBBONS Unit No: [id number] EXAMS: CPT CODE: [id number] US PREG AFTER 1ST TRI 38935 (Continued) Normal intracranial anatomy seen Umbilical cord insertion in fetus seen stomach, Renal Fossa, Bladder and Spine seen Three vessel umbilical cord noted Stomach seen. abnormalities observed: None seen at this exam Placental location: Poste rior Placental maturity : Grade 1 There is no evidence of placenta previa. Amniotic fluid volume isnormal. Uterus and adnexa: No significant abnormality is seen. Thank you for allowing us to participate in the care of this patient. Armand Kidd M.D. Electronic Signature 09/22/2019 10:26am at 1026 Reported and signed by: Armand Kidd MD CC: Technologist: Meagan Lake RDMS Probe: Trnscrbd D/ (1026) t.YOS Orig Print D/T: S: 09/22/2019 (1026) [facility] NAME: EDWIGEFELICIANOA Radiology Department PHYS: Gill Martinez [address] : 1990 AGE: 29 SEX: F [place] [address] LOC: Nivia.RAD PHONE #: [phone] EXAM DATE: 09/22/2019 STATUS: REG CLI FAX #: [phone] RAD NO: Page 2 Signed Report Patient Name: GARCIA GIBBONS Unit No: [id number] EXAMS: CPT CODE: [id number] US PREG AFTER 1ST TRI 07195 (Continued) [facility] Rad[facility] Department PHYS: Gill Martinez [address] : 1990 AGE: 29 SEX: F [place] [address] LOC: Nivia.RAD PHONE #: [phone] EXAMDATE: 09/22/2019 STATUS: REG CLI FAX #: [phone] RAD NO: Page 3 Signed Report Notes Date/Time Note Provider Source 2020-03-04 16:17:00 [id number] BeKu0wVr7XoG2UzSBuQKupZJ5qQNz bqhLdfx/zMq/yDwHyu1JPOCI8ZDJ5R+2/Q7055-52-36Q99:1 7:128556-3551 [facility] [address] [place], [place] [address] PATIENT NAME: GARCIA GIBBONS ADMIT DATE: 01/30/20ACCOUNT NO: [id number] ROOM NO: [facility] AGE: 29 SEX: F ADMITTING PHYSICIAN: May Baxter MD ATTENDING PHYSICIAN: May Baxter MD ADMISSION DATE: 01/30/2020DISCHARGE DATE: 02/01/2020 ADMITTING DIAGNOSIS: A 29-year-old G2, P1, 37 weeks, spontaneous rupture ofmembranes, latent labor, COVID positive, though asymptomatic. DISCHARGE DIAGNOSIS: A 29-year-old G2, P1, 37 weeks, spontaneous rupture ofmembranes, latent labor, COVID positive, though asymptomatic, and spontaneousvaginal delivery. DISCHARGE MEDICATIONS: vitamins, Motrin, Colace, and Tylenol. DISCHARGE INSTRUCTIONS: Pelvic rest, no heavy lifting, wound and feverprecautions, blues and depression precautions, COVID quarantineinstructions given and precautions regarding transmission to the baby and amongfamily members. FOLLOWUP: With Dr. Baxter in 6 weeks. HOSPITAL COURSE: Ms. Gibbons was admitted on the January 29 in early labor withrupture of membranes, clear fluid at 37 weeks. She was started on penicillinfor group B strep. Her rapid COVID test came back positive. She and herhusband were both asymptomatic. Neonatology consult was obtained to talk withthe family about options for care of the . All of their questions wereanswered and they desired to room in with the baby once the baby was born. Tanya was born after a normal labor progress at 6:09 in the morning on January 30. She delivered a baby boy with Apgars of 8 and 9 vaginally withoutcomplications. On day #1, the patient was doing well. She hadadequate pain control. She went home later in the day as the baby was doingwell and had discharge orders also. Her hemoglobin and hematocrit uponadmission was 11.3 and 36. It was not repeated. Her blood loss during laborand delivery was minimal. Dictated By: May Baxter MD WT: DS:F.HIM/MILJO.01/NTSDD: 03/04/2020 16:17:09DT: 03/04/2020 16:36:47Conf#: [id number]/DID#: [id number] Authenticated by May Baxter MD On 03/04/2020 10:34:47 PM PATIENT NAME: GARCIA GIBBONS at 2235 PATIENT NAME: GARCIA GIBBONS kenpgdh9015-14-53K55:36:00F.[id number] ilable for patient osgtSEIFDSKAXVHLMS1835-64-01Z79:35:21 [facility] 2020-02-01 08:22:00 [id number] U5HozUuFwxKVNvCNpr8d6dcbJNKVS F/2Wcut93qTo6/f1Wcuh0G61wM/XKaz1+k1836-73-45I46:2 2:00 [facility])OB Postpart Progr NoteREPORT#:[id number] REPORT STATUS: SignedDATE:02/01/20 TIME: 821 PATIENT: GARCIA GIBBONS UNIT #: [id number]#: [id number] [address] [birth year] AGE: 29 SEX: F ATTEND: [facility] AUTHOR: Hayley Palafox MD * ALL edits or amendments must be made on the electronic/computer document * Subjective SubjectiveStatus/Day: post (day 1 )Comments:no complaints. pain controlled. voiding, ambulating and tolerating po regular. reports baby doing well in nicu, no update from irina today yet. pt not interested in d/c home today. Objective GeneralVS:Vital Signs: Date Time Temp Pulse Resp B/P B/P Pulse O2 O2 Flow FiO2 Mean Ox Delivery Rate 01/31 0003 98.2 72 18 118/79 07/18 2021 98.0 64 18 121/81 07/18 1600 98.1 68 18 132/80 98 07/18 1136 98.1 64 18 123/81 97 07/18 1000 98.5 68 18 133/84 97 07/18 0908 64 98 07/18 0903 68 98 /18 0858 66 99 /18 0853 68 99 /18 0845 106.0 /18 0845 76 139/83 /18 0842 103.0 /18 0842 67 138/79 92 07/18 0831 115.0 /18 0831 70 157/86 /18 0830 65 97 Patient Weight Weight (lb): 174Weight (oz): Weight (kg): 78.925 Physical ExamNeuro: Exam: alert, oriented x3, normal speechAbdomen: soft, no abnormal tenderness, no guardingIncision site: noneUterus: involution appropriate, non-tenderFundus: non-tenderLochia: normalLacerations: Perineal laceration(s): 1st Degree (hemostatic) High vaginal laceration: noLower extremities: Edema: none ResultFindings/Data:Laboratory Tests 01/29 1840 Hematology WBC (6.6 - 12.1 K/mm3) 10.0 RBC (3.45 - 5.01 M/mm3) 3.83 Hgb (10.7 - 13.9 g/dL) 11.3 Hct (32.1 - 42.1 %) 36.0 MCV (84.1 - 94.8 fL) 94 MCH (27 - 35 pg) 29.5 MCHC (32.2 - 34.1 gm/dL) 31.4 L RDW (12.4 - 16.5 %) 14.0 Plt Count (133 - 385 K/mm3) 230 MPV (9.1 - 12.7 fl) 11.0 Neut % (Auto) (56.5 - 79.4 %) 78.1 Lymph % (Auto) (14.3 - 34.3 %) 14.8 [place] % (Auto) (5.1 - 10.4 %) 6.0 Eos % (Auto) (0.1 - 3.0 %) 0.3 Baso % (Auto) (0.1 - 1.0 %) 0.3 Neut # (Auto) (K/mm3) 7.8 Lymph # (Auto) (K/mm3) 1.5 [place] # (Auto) (K/mm3) 0.6 Eos # (Auto) (K/mm3) 0.03 Baso # (Auto) (K/mm3) 0.0 Laboratory Tests 01/29 01/29 1840 1740 Serology Treponema pallidum Ab (NONREACTIVE) NONREACTIVE Hep Bs Antigen (NONREACTIVE) NONREACTIVE Hepatitis C Antibody (NONREACTIVE) NONREACTIVE Hep C Ab Signal/Cutoff (<0.80) 0.02 HIV 1 2 Antibody (NONREACTIVE) NONREACTIVE SARS-CoV-2 Ag (Rapid) (NEGATIVE) POSITIVE *A Diagnosis, Assessment Plan Diagnosis, Assessment PlanFree text A P:ppd 1 for , covid + status, baby in nicucont pp care anticipate d/c home tomorrow at 0826 RPT #:[id number] OF REPORT PRProgress Euae6633-85-03R32:22:00F.GNFR06937102-0577NNSennx able for patient xxqhZQHSTVUSUDRURO3640-40-69U34:27:10 [facility] 2020-01-31 06:31:00 QMjqyztlljf83164057/ O7vUp6ok76+/yEgoZIpAavmRNSCDN h/AG/GlvNTKLXQLE1j+HJ+TBQo0EHGZju45993-66-67O61:3 1:00 [facility] ([facility])OB Delivery NoteREPORT#:[id number] REPORT STATUS: SignedDATE:01/31/20 TIME: 630 PATIENT: GARCIA GIBBONS UNIT #: [id number]#: [id number] [facility] [birth year] AGE: 29 SEX: F ATTEND: May Baxter [facility] AUTHOR: Leia Penaloza MD * ALL edits or amendments must be made on the electronic/computer document * OB Delivery Nursing Documentation ReviewNursing data:The data set between the solid lines has been imported from nursing documentation. Any exceptions have been noted below under Provider comments. ROM date: 01/30/20 ROM time: 1200Membranes rupture method: SROMAmniotic fluid color: ClearAmniotic fluid amount: EGA (weeks/days): 37.0EGA at admit (weeks): EGA at delivery (weeks): Steroids prior to arrival: Antibiotic prophylaxis given: [place] evaluation at delivery: Delivery date infant A: Delivery time A: Birthweight (gm) infant A: Weight (lb) infant A: Weight (oz) A: Gender infant A: MaleApgar 1 minute infant A: 5 minutes A: 10 minutes infant A: Cord pH obtained A: Vacuum time infant A: Vacuum # pulls A: Vacuum # popoffs infant A: QBL at delivery: Provider comments on imported nursing data: [] Pre-deliveryGBS status: GBS status: positive Prophylaxis administered: penicillinNewborn evaluation at delivery: NRP certified personnel, sent to NICU for COVID +Admission EGA (wks/days): 37 weeksEGA at delivery (wks/days): 37 weeks Baby A InformationBaby A information Delivery date: 01/31/20 Delivery time: 0609 status: live born Wt of baby (grams): 2910 Gender: male 1 minute: 8 5 minutes: 9 Presentation: vertex (asynclitic) Anomalies:noneABG details Baby A Cord blood gases: not collectedNuchal cord Baby A Nuchal cord: yes (tight,deliv.through) Vaginal DeliveryVaginal delivery: Labor: augmented Medications/Devices used: oxytocin Vaginal delivery: spontaneous Amniotic fluid: clear Anesthesia type: epidural anesthesia Episiotomy: none Episiotomy repair: not applicable Laceration repair: not required Placenta: spontaneous, intact, sent to pathology Post delivery meds used: oxytocin Count: correct, vag exam neg for sponges Mother's condition: mother stable 's condition: infant to NICULacerations: Perineal laceration(s): 1st Degree (hemostatic) High vaginal laceration: noExtraction details OVD performed: noShoulder dystocia present: no Blood Loss/DetailsBlood loss at delivery: <1000 mlEBL at delivery (ml's): 200 at 0634 RPT #:[id number] OF REPORT OBObstetric oyxp0449-36-73G25:31:00F.SFUW92769863-4213JRPsgnx able for patient qgytLFNRTBKAAWXIVS1572-24-07A49:34:35 [facility] 2020-01-31 00:26:00 [id number] SoW/5LRA2RVZzs+hs1UNLROhJ8lYQ iKFXf75ZGdwAfrmZFkdymAnHxik0B9D1Fk1659-97-00V78:2 6:00 [facility] ([facility])DT Consult NoteREPORT#:[id number] REPORT STATUS: SignedDATE:01/31/20 TIME: 25 PATIENT: GARCIA GIBBONS UNIT #: [id number]#: [id number] [facility] [birth year] AGE: 29 SEX: F ATTEND: May Baxter [facility] AUTHOR: Enoch Sage MD * ALL edits or amendments must be made on the electronic/computer document * CONSULT NOTENote:It was pleasure to talk to Ms Gibbons. She was tested postive for COVID. Her husbndis negative, She says she is asymptomatic. I discussed with her the options of rooming in with baby and of isolating baby in NICU with their advantages and disadvantages. She chose to room in with baby and take all necessary precautions per the hospital policy. She understands thatif baby needs NICU support the hospital visitation policy will be applied given her COVID status. Please alert NICU team at delivery. We will be available to assess baby if any concerns. Thank you! Dr. Enoch ReinosoonatologistGateway Rehabilitation [facility] at 0031 RPT #:[id number] OF REPORT QURxhwewvxyxtw3725-35-32Z71:26:00F.ALTB79911689-0 004AVAvailable for patient dmqhZBGAONVTNESSFO0486-65-72T92:31:44 [facility] 2020-01-31 00:26:00 XXptdebjqcb20439436G 5AAbApX0BnNsypkJiXwFQ33hKg2EY DNQk0XssLJQU7CFr1LX2OyYwnKZpw2W+f39071-79-96T52:2 6:00 [facility] ([facility])DT Consult NoteREPORT#:[id number] REPORT STATUS: SignedDATE:01/31/20 TIME: 0026 PATIENT: GARCIA GIBBONS UNIT #: [id number]#: [id number] ROOM/BED: .009-ADOB: [birth year] AGE: 29 SEX: F ATTEND: May Baxter [facility] AUTHOR: Enoch Sage MD * ALL edits or amendments must be made on the electronic/computer document * See AddendumCONSULT NOTENote:It was pleasure to talk to Ms Gibbons. She was tested postive for COVID. Her husbndis negative, She says she is asymptomatic. I discussed with her the options of rooming in with baby and of isolating baby in NICU with their advantages and disadvantages. She chose to room in with baby and take all necessary precautions per the hospital policy. She understands thatif baby needs NICU support the hospital visitation policy will be applied given her COVID status. Please alert NICU team at delivery. We will be available to assess baby if any concerns. Thank you! Dr. Enoch RandalllogRhonda [facility] at 0031 Addendum 1: 01/31/20 0053 by Enoch Sage MD Ms Gibbons decided to isolate the baby in NICU. Will transfer baby to NICU 3W as soon as baby is born and will follow unit protocol. Mom showed understanding about the whole process of isolation and visitation policy Dr. Enoch [facility] at 0055 RPT #:[id number] OF REPORT UCHvemihxgnrqe6551-40-93I23:26:00F.DGQJ67946101-2 004AVAvailable for patient iscmRVVLYBVDEDPTOQ1795-97-04X62:55:34 [facility] 2020-01-30 23:20:00 BHnovbyadga72840681J tsq09ijFRW6yBpuPTHyLQw6Tj0zRA lbAHHIcCY2IJCinmO0lTQdNJvfssLUTXQZ0013-08-95W85:2 0:00 [facility] ([facility])OB Intrapart Prog NoteREPORT#:[id number] REPORT STATUS: SignedDATE:01/30/20 TIME: 2319 PATIENT: GARCIA GIBBONS UNIT #: [id number]#: [id number] ROOM/BED: 009-ADOB: [birth year] AGE: 29 SEX: F ATTEND: May Baxter [facility] AUTHOR: Leia Penaloza MD * ALL edits or amendments must be made on the electronic/computer document * Subjective SubjectiveAdmission EGA (wks/days): 37 weeksComments:Pt comfortable with epidural. Objective Nursing Documentation ReviewNursing data:The data set between the solid lines has been imported from nursing documentation. Any exceptions have been noted below under Provider comments. ROM date: 01/30/20 ROM time: 1200 Provider comments on imported nursing data: [] GeneralVS:Last Documented: Result Date Time B/P Mean 89.0 01/29 2246 B/P 121/72 01/29 2246 Pulse 83 01/29 2246 Pulse Ox 100 01/29 2230 Temp 99.2 01/29 2030 Resp 19 01/29 2030 Vital Signs Date Temp Pulse Resp B/P B/P Mean Pulse Ox FiO2 01/29 99.2 57-121 19 121-134/71-83 89.0-101.0 100 Patient Weight Weight (lb): 174Weight (oz): Weight (kg): 78.925 ObjectiveCervical/ exam: Dilatation (cm): 3 (per RN) Effacement (%): 70 station: - 3 presentation: cephalicUterine activity: Monitor: toco Frequency (description): regular (Q2-5)Current oxytocin: Indication: augmentation Infusion rate: 4.00 FHR EvaluationBaby A: Baby A baseline: 140 bpm Baby A variability: moderate 6-25 bpm Baby A accelerations: 15 X 15 Baby A decelerations: none Baby A FHR category: category 1 ResultFindings/Data:Laboratory Tests: 01/29 01/29 1840 1740 Hematology WBC (6.6 - 12.1 K/mm3) 10.0 RBC (3.45 - 5.01 M/mm3) 3.83 Hgb (10.7 - 13.9 g/dL) 11.3 Hct (32.1 - 42.1 %) 36.0 MCV (84.1 - 94.8 fL) 94 MCH (27 - 35 pg) 29.5 MCHC (32.2 - 34.1 gm/dL) 31.4 L RDW (12.4 - 16.5 %) 14.0 Plt Count (133 - 385 K/mm3) 230 MPV (9.1 - 12.7 fl) 11.0 Neut % (Auto) (56.5 - 79.4 %) 78.1 Lymph % (Auto) (14.3 - 34.3 %) 14.8 [place] % (Auto) (5.1 - 10.4 %) 6.0 Eos % (Auto) (0.1 - 3.0 %) 0.3 Baso % (Auto) (0.1 - 1.0 %) 0.3 Neut # (Auto) (K/mm3) 7.8 Lymph # (Auto) (K/mm3) 1.5 [place] # (Auto) (K/mm3) 0.6 Eos # (Auto) (K/mm3) 0.03 Baso # (Auto) (K/mm3) 0.0 Serology Treponema pallidum Ab (NONREACTIVE) NONREACTIVE Hep Bs Antigen (NONREACTIVE) NONREACTIVE Hepatitis C Antibody (NONREACTIVE) NONREACTIVE Hep C Ab Signal/Cutoff (<0.80) 0.02 HIV 1 2 Antibody (NONREACTIVE) NONREACTIVE SARS-CoV-2 Ag (Rapid) (NEGATIVE) POSITIVE Diagnosis, Assessment PlanAssessment: normal FHR pattern, latent phase labor, COVID positivePlan: anticipate vag delivery, continue labor induction, begin antibiotic therapy (continue PCN for GBS) at 2322 RPT #:[id number] OF REPORT PRProgress [id number]:20:[id number] able for patient [id number]:22:49 [facility] 2020-01-30 19:17:00 [id number] [id number]:1 7:00 [facility] ([facility])OB Admission / H PREPORT#:[id number] REPORT STATUS: SignedDATE:01/30/20 TIME: 1916 PATIENT: GARCIA GIBBONS UNIT #: [id number]#: [id number] ROOM/BED: .LD-LDOB: [birth year] AGE: 29 SEX: F ATTEND: May Baxter [facility] AUTHOR: Leia Penaloza MD * ALL edits or amendments must be made on the electronic/computer document * OB Admission H P Hx Nursing Documentation ReviewNursing data:The data set between the solid lines has been imported from nursing documentation. Any exceptions have been noted below under Provider comments. Current dataSteroids prior to arrival: ROM date: 01/30/20 ROM time: 1200EGA (weeks/days): 37.0 EGA at admit (weeks): EDC date: 02/20/20 Prior historyGravida: 2 Para: 1 Term: : Abortions spontaneous: Abortions induced: Living children: Ectopic: Stillbirths: Live births: deaths: Number of previous C/S: Reported maternal labs/dataBlood type: ORh type: PositiveRubella: Hepatitis B: NegativeHIV exposure test: VDRL: Group B beta strep: PositiveRho(D) immune globulin this preg: Monitor mode - UA: Feeding preference: Provider comments on imported nursing data: [] Chief complaint: suspected ruptured membHPI:Pt is a 29 yo at 37w0d who presents today with ruptured membranes. Pt states that starting about noon she noticed that she started gushing clear fluid. No real ctx yet. No other complaints. with Dr. Baxter has been uncomplicated. Patient has no complaints of fevers or URI symptoms. She has no known COVID positive contacts. G1 FT , F, 5#5ozPregnancy history: : 2 Term: 1 : 0 Abortus: 0 Living children: 1 Complications (prev preg): none Previous : noneCurrent : LMP: 05/16/19 EDC: 02/20/20 Admission EGA (wks/days): 37 weeks EGA based on: LMPLabs: Blood type: O Rh: positive Rubella: immune Hepatitis B: negative HIV: negative STD: negative Syphilis: currently negative GBS: positiveGenetic testing: nonePast medical history: asthmaPast surgical history: bilateral bunionectomySocial history: no alcohol use, no tobacco use, no drug useFamily historyFamily history was reviewed; no changes noted.Medications:Home Medications:PNV/FE FUM/FA ( MULTIVITAMIN) 1 TAB PO DAILY AllergiesCoded Allergies:No Known Drug Intolerances (none 09/24/15) Review of SystemsAll systems rev neg: except as marked Objective GeneralVS:Patient Weight Weight (lb): 174Weight (oz): Weight (kg): 78.925 Physical ExamNeuro: Exam: alert, oriented x3, normal speech, CNII-XII grossly intactAbdomen: gravid, soft, no abnormal tenderness, no guarding, no rebound tendernessUterine activity: Monitor: toco Frequency (description): irregularPelvic exam: Pelvis clinically adequate: yes Uterus size in weeks: 37Cervical/ exam: Dilatation (cm): 1 (1.5 per RN) Effacement (%): 50 Est wt (gms): 3000 Suspected macrosomia: No Suspected > 5000 grams: No station: - 2 presentation: cephalicMembranes: Membranes: SROM ROM date: 01/30/20 Amniotic fluid: clearLower extremities: Edema: traceBaby A: Baby A baseline: 140 bpm Baby A variability: moderate 6-25 bpm Baby A accelerations: 15 X 15 Baby A decelerations: none Baby A FHR category: category 1 ResultFindings/Data:Laboratory Tests: 01/29 01/29 1840 1740 Hematology WBC (6.6 - 12.1 K/mm3) 10.0 RBC (3.45 - 5.01 M/mm3) 3.83 Hgb (10.7 - 13.9 g/dL) 11.3 Hct (32.1 - 42.1 %) 36.0 MCV (84.1 - 94.8 fL) 94 MCH (27 - 35 pg) 29.5 MCHC (32.2 - 34.1 gm/dL) 31.4 L RDW (12.4 - 16.5 %) 14.0 Plt Count (133 - 385 K/mm3) 230 MPV (9.1 - 12.7 fl) 11.0 Neut % (Auto) (56.5 - 79.4 %) 78.1 Lymph % (Auto) (14.3 - 34.3 %) 14.8 [place] % (Auto) (5.1 - 10.4 %) 6.0 Eos % (Auto) (0.1 - 3.0 %) 0.3 Baso % (Auto) (0.1 - 1.0 %) 0.3 Neut # (Auto) (K/mm3) 7.8 Lymph # (Auto) (K/mm3) 1.5 [place] # (Auto) (K/mm3) 0.6 Eos # (Auto) (K/mm3) 0.03 Baso # (Auto) (K/mm3) 0.0 Serology SARS-CoV-2 Ag (Rapid) (NEGATIVE) POSITIVE Diagnosis, Assessment Plan Diagnosis, Assessment PlanFree Text A P:29 yo at 37 weeks with SROM, latent labor1. Labor: will augment with pitocin 2x2. Anticipate .2. FHTs Cat I3. GBS +: start PCN4. Pain: epidural PRN5. COVID +: patient and spouse informed on protocols. No symptoms. Will notifyNeo for counseling for care. at 1927 RPT #:[id number] OF REPORT HPHistory and physical [id number]:17:[id number] AVAvailable for patient [id number]:27:40 HCAWH
--- NOTE | 2023-11-11 15:14 | RAD REPORT ---
EXAM DESCRIPTION: RAD - Ankle Right 3 View - 11/11/2023 2:51 pm CLINICAL HISTORY: Right ankle pain FINDINGS: No fracture or dislocation is seen.
--- NOTE | 2023-11-11 15:18 | ER ---
Nurse's Notes [facility] Name: Estela Smith Age: 33 yrs Sex: Female : 1990 Arrival Date: 11/11/2023 Time: 13:27 Bed 11 Private MD: Diagnosis: Sprain of ankle Presentation: 11/10 13:33 Chief complaint: Patient states: Twisted right ankle on Sunday, pain/swelling has nj1 gotten worse. Ibuprofen taken last night with very little relief. Coronavirus screen: Vaccine status: Patient reports being unvaccinated. Ebola Screen: Patient denies travel to an Ebola-affected area in the 21 days before illness onset. Initial Sepsis Screen: Does the patient meet any 2 criteria? HR > 90 bpm. No. Patient's initial sepsis screen is negative. Does the patient have a suspected source of infection? No. Patient's initial sepsis screen is negative. Risk Assessment: Do you want to hurt yourself or someone else? Patient reports no desire to harm self or others. Onset of symptoms was November 09, 2023. 13:33 Method Of Arrival: Wheelchair nj 13:33 Acuity: WILLIAM 3 nj1 Triage Assessment: 13:35 General: Appears in no apparent distress. uncomfortable, Behavior is calm, cooperative, nj1 appropriate for age. Pain: Complains of pain in right ankle Pain currently is 7 out of 10 on a pain scale. at worst was 10 out of 10 on a pain scale. Aggravated by increased activity, weight bearing. Neuro: Level of Consciousness is awake, alert, obeys commands, Oriented to person, place, time, situation. Cardiovascular: Patient's skin is warm and dry. Musculoskeletal: Swelling present in right ankle Reports pain in right ankle since sunday. Pain is 7 out of 10 on a pain scale. Historical: - Allergies: 13:35 No Known Allergies; nj1 - PMHx: 13:35 Asthma; nj1 - Immunization history:: Client reports having NOT received the Covid vaccine. - Infectious Disease History:: Denies. - Social history:: Smoking status: Patient reports the use of cigarette tobacco products, smokes one-half pack cigarettes per day. Screenin:[address] [facility] ED Fall Risk Assessment (Adult) History of falling in the last 3 months, rs5 including since admission No falls in past 3 months (0 pts) Confusion or Disorientation No (0 pts) Intoxicated or Sedated No (0 pts) Impaired Gait No (0 pts) Mobility Assist Device Used No (0 pt) Altered Elimination No (0 pt) Score/Fall Risk Level 0 - 2 = Low Risk Oriented to surroundings, Maintained a safe environment. Abuse screen: Denies threats or abuse. Nutritional screening: No deficits noted. Tuberculosis screening: No symptoms or risk factors identified. Assessment: 13:40 General: Appears in no apparent distress. uncomfortable, Behavior is calm, cooperative. rs5 Pain: Complains of pain in right ankle Pain currently is 5 out of 10 on a pain scale. Quality of pain is described as aching, Is continuous, Aggravated by repositioning, weight bearing. Neuro: Level of Consciousness is awake, alert, obeys commands, Oriented to person, place, time, situation. Cardiovascular: Patient's skin is warm and dry. Rhythm is regular. Respiratory: Airway is patent Respiratory effort is even, unlabored, Respiratory pattern is regular, symmetrical. GI: Abdomen is round non-distended, Abd is soft and non tender X 4 quads. : No signs and/or symptoms were reported regarding the genitourinary system. EENT: No signs and/or symptoms were reported regarding the EENT system. Derm: Skin Skin is pink, warm \T\ dry. Musculoskeletal: Circulation, motion, and sensation intact. mild swelling noted to right ankle. 14:45 Reassessment: Patient and/or family updated on plan of care and expected duration. Pain rs5 level reassessed. Patient is alert, oriented x 3, equal unlabored respirations, skin warm/dry/pink. Patient denies pain at this time. Patient states feeling better. Patient states symptoms have improved. 15:20 Reassessment: No changes from previously documented assessment. rs5 Vital Signs: 13:33 BP 152 / 97; Pulse 108; Resp 18; Temp 98.9(O); Pulse Ox 99% ; Weight 62.14 kg; Height 5 nj1 ft. 1 in. ; Pain 7/10; 15:29 BP 145 / 91; Pulse 89; Resp 18; Pulse Ox 99% on R/A; rs5 13:33 Body Mass Index 25.89 (62.14 kg, 154.94 cm) [facility] 13:33 Pain Scale: Adult [facility] ED Course: 13:30 Patient arrived in ED. im 13:35 Triage completed. nj1 13:35 Dionna Milton PA-C is PHCP. sb4 13:35 Meghan Pierce MD is Attending Physician. sb4 13:35 Arm band placed on right wrist. nj1 13:40 Patient has correct armband on for positive identification. Placed in gown. Bed in low rs5 position. Call light in reach. Side rails up X2. 14:25 Alphonso Valdivia, RN is Primary Nurse. rs5 14:53 Ankle Right 3 View XRAY In Process Unspecified. EDMS 15:11 No provider procedures requiring assistance completed. rs5 15:17 Ruiz Salinas MD is Referral Physician. sb4 15:35 Patient did not have IV access during this emergency room visit. rs5 Administered Medications: 15:15 Drug: HYDROcodone-acetaminophen PO 5 mg-325 mg 1 tabs PO once Route: PO; rs5 15:34 Follow up: Response: No adverse reaction rs5 Medication: 15:10 VIS not applicable for this client. rs5 Outcome: 15:17 Discharge ordered by . sb4 15:35 Patient left the ED. rs5 15:35 Discharged to home with crutches, with family, rs5 15:35 Condition: stable 15:35 Discharge instructions given to patient, family, Instructed on discharge instructions, follow up and referral plans. Demonstrated understanding of instructions, follow-up care, Signatures: Dispatcher [employer] EDWI Dionna Milton PA-C PA-C sb4 Alphonso Valdivia RN RN rs5 Deb Brothers RN RN nj1 Basilia Nunez im Corrections: (The following items were deleted from the chart) 16:47 15:45 Patient left the ED. nj1 rs5 16:48 14:45 Reassessment: Patient and/or family updated on plan of care and expected rs5 duration. Pain level reassessed. Patient is alert, oriented x 3, equal unlabored respirations, skin warm/dry/pink. rs5
--- NOTE | 2023-11-11 15:18 | EDPHYS ---
Physician Documentation [facility] Name: Estela Smith Age: 33 yrs Sex: Female : 1990 Arrival Date: 11/11/2023 Time: 13:27 Bed 11 Private MD: ED Physician Meghan Pierce HPI: 11/10 14:25 This 33 yrs old Female presents to ER via Wheelchair with complaints of Ankle sb4 Injury. 14:25 The patient presents with an injury, pain, swelling, tenderness. The complaints affect sb4 the right ankle. Onset: The symptoms/episode began/occurred 2 day(s) ago. Context: "twisting" The patient can partially bear weight on the affected extremity. the patient is able to ambulate, with mild difficulty. Associated signs and symptoms: The patient has no apparent associated signs or symptoms. The patient has not experienced similar symptoms in the past. The patient has not recently seen a physician. Historical: - Allergies: 13:35 No Known Allergies; nj1 - PMHx: 13:35 Asthma; nj1 - Immunization history:: Client reports having NOT received the Covid vaccine. - Infectious Disease History:: Denies. - Social history:: Smoking status: Patient reports the use of cigarette tobacco products, smokes one-half pack cigarettes per day. ROS: 14:25 Constitutional: Negative for fever, chills, and weight loss, sb4 14:25 MS/extremity: Positive for injury or acute deformity, pain, swelling, tenderness, 14:25 All other systems are negative, Exam: 14:25 Constitutional: This is a well developed, well nourished patient who is awake, alert, sb4 and in no acute distress. Head/Face: Normocephalic, atraumatic. Eyes: Extra-ocular motions intact. Periorbital areas with no swelling, redness, or edema. ENT: Mucous membranes moist. Skin: Warm, dry with normal turgor. Normal color with no rashes, no lesions, and no evidence of cellulitis. Neuro: Awake and alert, GCS 15, oriented to person, place, time, and situation. Motor strength 5/5 in all extremities. Sensory grossly intact. 14:25 Musculoskeletal/extremity: ROM: limited active range of motion due to pain, limited passive range of motion due to pain, Circulation is intact in all extremities. Pulses: are normal with no appreciated deficits, Perfusion: the patient is normally perfused throughout, Perfusion: the extremity is normally perfused throughout, Sensation intact. Weight bearing: able to fully bear weight, Vital Signs: 13:33 BP 152 / 97; Pulse 108; Resp 18; Temp 98.9(O); Pulse Ox 99% ; Weight 62.14 kg; Height 5 nj1 ft. 1 in. ; Pain 7/10; 15:29 BP 145 / 91; Pulse 89; Resp 18; Pulse Ox 99% on R/A; rs5 13:33 Body Mass Index 25.89 (62.14 kg, 154.94 cm) nj1 13:33 Pain Scale: Adult nj1 MDM: 13:40 Patient medically screened. sb4 14:25 Differential diagnosis: fracture, sprain. sb4 14:53 Independent interpretation of the following test(s) in the Emergency Department X-Ray: sb4 My interpretation is my interpretation of the ankle xray images are no acute fracture or dislocation. 15:17 Data reviewed: vital signs, nurses notes, radiologic studies, and as a result, I will sb4 discharge patient. Counseling: I had a detailed discussion with the patient and/or guardian regarding the historical points, exam findings, and any diagnostic results supporting the discharge/admit diagnosis, radiology results, to return to the emergency department if symptoms worsen or persist or if there are any questions or concerns that arise at home. 11/10 13:41 Order name: Ankle Right 3 View XRAY; Complete Time: 15:15 sb4 11/10 15:17 Order name: Walking boot; Complete Time: 16:48 sb4 11/10 15:17 Order name: Crutches; Complete Time: 16:48 sb4 Administered Medications: 15:15 Drug: HYDROcodone-acetaminophen PO 5 mg-325 mg 1 tabs PO once Route: PO; rs5 15:34 Follow up: Response: No adverse reaction rs5 Disposition Summary: 11/11/23 15:17 Discharge Ordered Notes: Location: Home sb4 Problem: new sb4 Symptoms: are unchanged sb4 Condition: Stable sb4 Diagnosis - Sprain of ankle sb4 Followup: sb4 - With: Ruiz Salinas MD - When: As needed - Reason: Recheck today's complaints, Re-evaluation by your physician Discharge Instructions: - Discharge Summary Sheet sb4 - Ankle Sprain, [id number] sb4 Forms: - Patient Portal Instructions sb4 - Leadership Thank You Letter sb4 - Work release form rs5 Signatures: Dispatcher [employer] Dionna Mancuso PA-C PA-C sb4 Alphonso Valdivia, RN RN rs5 Deb Brothers RN RN nj1
[2023-11-11] MEDS ORDERED: HYDROCODONE/APAP 5/325 MG TAB ONE (15:20)
[2023-11-11 16:10] VITALS: BP 152/97; TEMP 98.9; O2SAT 99
== END 2023-11-11 15:45 | disposition home or self-care (01) ==
LOC: ER 13:27
DX: S93.401A Sprain of unspecified ligament of right ankle, initial encounter (principal); F17.210 Nicotine dependence, cigarettes, uncomplicated
CPT/HCPCS: 99283